=== PATIENT | female | born 1965 | race African-American/Black ===

== ENCOUNTER 2019-03-08 18:10 | Emergency (ER) | payer OTHER ==
[~2019-03-08] VITALS: Ht 167.6 cm; Wt 91.0 kg
[2019-03-08] MEDS ORDERED: SODIUM CHLORIDE 0.9% 1,000 ML IV ONE (18:47)
[2019-03-08] MEDS ORDERED: IBUPROFEN 600MG TABLET PO STA (18:47)
[2019-03-08 19:45] LABS: CLARITY URINE CLOUDY (CLEAR); COLOR URINE YELLOW (YELLOW); KETONES URINE TRACE (NEGATIVE); LEUKOCYTE ESTERASE URINE NEGATIVE (NEGATIVE); NITRITE URINE NEGATIVE (NEGATIVE); OCCULT BLOOD URINE NEGATIVE (NEGATIVE); PH URINE 5.5 (4.5-8.0); PROTEIN URINE 1+ (NEGATIVE); SPECIFIC GRAVITY URINE 1.019 (1.005-1.030); UROBILINOGEN URINE 0.2 E.U./dL (0.2-1.0)
[2019-03-08 20:01] LABS: CHLORIDE 106 mEq/L (98-107); PROTHROMBIN TIME 10.6 sec (9.6-11.0)
[2019-03-08 21:11] LABS: MEAN CORPUSCULAR HEMOGLOBIN 15.9 pg (28.0-32.0); MEAN CORPUSCULAR VOLUME 55.7 fL (81.0-99.0); MEAN PLATELET VOLUME 8.3 fl (7.4-10.4); PLATELET 612 x1000/uL (130-400); RED BLOOD CELL COUNT 3.33 mill/uL (4.2-5.4); RED CELL DISTRIBUTION WIDTH 23.9 % (11.6-14.6)
[2019-03-08 21:22] LABS: HEMATOCRIT. 18.6 % (36.0-48.0); HEMOGLOBIN. 5.3 g/dL (12.0-16.0)
[2019-03-08 21:39] LABS: PLATELET ESTIMATE INCREASED
[2019-03-09] MEDS ORDERED: ACETAMINOPHEN 325MG TABLET PO ONE (00:30)
[2019-03-09 02:10] VITALS: BP 134/80
== END 2019-03-09 02:15 | disposition short-term general hospital (02) ==
LOC: ER 18:21
DX: R55 Syncope and collapse (principal); S09.8XXA Other specified injuries of head, initial encounter; I10 Essential (primary) hypertension; D64.9 Anemia, unspecified; W01.0XXA Fall on same level from slipping, tripping and stumbling without subsequent striking against object, initial encounter; Y93.89 Activity, other specified; Y92.89 Other specified places as the place of occurrence of the external cause
CPT/HCPCS: 36415; 70450; 71045; 80053; 81003; 84484; 85025; 85610; 86850; 86900; 86901; 86920; 93005; 96360; 96361; 99291; J7030; P9016